=== PATIENT | female | born 1990 | race Two or more races ===

== ENCOUNTER 2025-09-26 10:16 | Emergency (ER) | payer MEDICAID, SELFPAY ==
[2025-09-26 10:51] VITALS: BP 139/92; PULSE 67; RESP 17; TEMP 36.9; O2SAT 98; BMI 35.4
--- NOTE | 2025-09-26 11:44 | PD.EDADULT ---
ED General RME/HPI General Chief complaint: Wound/Laceration Stated complaint: LAC Time Seen by Provider: 09/26/25 10:55 Arrival date/time: 09/26/25 10:16 35-year-old female patient came in for evaluation regarding laceration to the wrist, medial aspect. Incident happened few minutes prior to ER visit as lacerations of the wrist, medial aspect, sustaining a 2 cm gaping laceration with a broken glass. Patient is able to bend and extend the fingers and the wrist without any limitation. Tetanus vaccination is up-to-date. Related Data Home Medications ?Medication ?Instructions ?Recorded ?Confirmed Vitamin * 1 tab PO QDAY #0 tabs 05/24/16 ferrous sulfate 325 mg (65 mg 325 mg PO BIDWM #0 tabs 05/24/16 iron) tablet (Feosol) folic acid 400 mcg tablet 0.4 mg PO QDAY #0 tabs 05/24/16 Allergies Allergy/AdvReac Type Severity Reaction Status Date / Time Penicillins Allergy Mild Rash Verified 09/26/25 10:17 Review of Systems Review of Systems Narrative Review of Systems: Review of system reviewed and within normal limits except mentioned in HPI ED Exam Narrative Physical exam: VITAL SIGNS: Reviewed. GENERAL APPEARANCE: Alert and interactive, follows commands, no acute distress, HEAD AND FACE: Non-traumatic. ENT: PERRL, pink conjunctivitis, eyelid no trauma, Mucous membrane moist. NECK: Supple, nontender, no nuchal rigidity. CHEST: No tenderness, no crepitus, no paradoxical movement, no retractions. LUNGS: Clear, well ventilated, symmetric, no rales, no wheezing, no ronchi, no stridor, good breath sounds bilaterally. HEART: Regular rate, regular rhythm, no murmur, no gallops. ABDOMEN: Soft, positive bowel sounds, nondistended, no guarding, nontender, no rebound, no masses, RECTAL: Deferred. GENITAL: Deferred. NEUROLOGICAL: Gross motor function intact sensory function intact, Appropriate for age. MUSCULOSKELETAL: low back nontender, full range of motion. EXTREMITIES: + 2 cm gaping laceration, left breast, medial aspect , full range of motion of the wrist and fingers. SKIN: Color pink, dry, no rash, no lacerations, no abrasions, no contusions. LYMPHATICS: Deferred. Course Quality Measures none Vital Signs Vital signs: Vital Signs Temperature 98.5 F 09/26/25 10:51 Pulse Rate 67 09/26/25 10:51 Respiratory Rate 17 09/26/25 10:51 Blood Pressure 139/92 H 09/26/25 10:51 Pulse Oximetry (%) 98 09/26/25 10:51 Oxygen Delivery Method Room Air 09/26/25 10:51 PROCEDURES: Laceration Laceration 1: Site: other (Left wrist) Side (If applicable): left Size (cm): 2 Description: linear Depth: simple, single layer Local Anesthetic: lidocaine 1% Amount of anesthesia used (mL): 3 Pre-repair: wound explored, irrigated extensively and deep structures intact Skin layer closed with: nylon Suture size (cm): 5-0 Number of sutures: 6 Technique: simple, interrupted Discharge Plan Plan Patient Disposition: HOME (Self Care) Discharge Disposition comment: Stable Prescriptions/Referrals Prescriptions/Med Rec: No Action folic acid 0.4 MG tablet 0.4 mg PO QDAY Qty: 0 ferrous sulfate [Feosol] 1 TAB tablet 325 mg PO BIDWM Qty: 0 Vitamin * 1 EACH tablet 1 tab PO QDAY Qty: 0 Problem List Clinical Impression: Laceration of left wrist Patient/Caregiver Discharge Instructions Discharge Activity: activity as tolerated Education Materials: ED Laceration: All Closures Additional Instructions: Thank you for the opportunity for serving you today. You are stable for discharged . You are advised to: Follow-up with your PCP in 1 to 2 days Return to ED for worsening of symptoms Daily dressing with triple antibiotic as needed For removal of sutures in 7 days Print Language: Japanese Stand Alone Forms: Sherly Award Info., Patient Portal Info Letter ROGER/ALXE Supervising Physician ROGER/ALEX Supervising Physician: MD Chao MDM Narrative MDM hospital course (for use when minimal MDM required): 09/26/25 10:16 35-year-old female patient came in for evaluation regarding laceration to the wrist, medial aspect. Incident happened few minutes prior to ER visit as lacerations of the wrist, medial aspect, sustaining a 2 cm gaping laceration with a broken glass. Patient is able to bend and extend the fingers and the wrist without any limitation. Tetanus vaccination is up-to-date. Repair and suturing was done by me see procedure notes imaging is not needed at this time patient does not need tetanus vaccination she is up-to-date she does not need oral antibiotic also. Patient stable for discharge home Diagnosis Differential Diagnosis ED Complaint MDM: Wrist laceration, skin avulsion, contusion Diagnoses ruled out and/or further discussions: Wrist laceration
== END 2025-09-26 12:08 | disposition home or self-care (01) ==
LOC: SERX 12:20
PROVIDERS: Emergency Provider Emergency Medicine; PCP Family Medicine
DX: S61.512A Laceration without foreign body of left wrist, initial encounter (principal); W25.XXXA Contact with sharp glass, initial encounter
CPT/HCPCS: 12002; 99281